=== PATIENT | female | born 1965 | race Caucasian/White ===

== ENCOUNTER 2017-07-06 08:36 | Emergency (ER) | payer SELFPAY, OTHER | END 2017-07-06 11:25 | disposition left against medical advice (07) | LOC: FTE 08:36 | DX: Z53.21 Procedure and treatment not carried out due to patient leaving prior to being seen by health care provider (principal) | CPT/HCPCS: 93005 ==

== ENCOUNTER 2017-07-24 06:04 | Emergency (ER) | payer OTHER ==
[2017-07-24 07:51] LABS: ADD MAN DIFF? NO
[2017-07-24 07:54] LABS: WHITE BLOOD COUNT 5.8 10^3/ul (4.8-10.8)
[2017-07-24 07:54] LABS: BASOPHIL # 0.1 10^3/ul (0.0-0.1); BASOPHILS % 1.2 % (0.0-2.0); EOSINOPHILS % 0.5 % (0.0-7.0); LYMPHOCYTES # 2.1 10^3/ul (0.8-2.9); LYMPHOCYTES % 36.7 % (15.0-51.0); MEAN CORPUSCULAR HEMOGLOBIN 30.9 pg (29.0-33.0); MEAN CORPUSCULAR HGB CONC 33.3 g/dl (32.0-37.0); MEAN CORPUSCULAR VOLUME 92.7 fl (82.0-101.0); MEAN PLATELET VOLUME 9.3 fl (7.4-10.4); MONOCYTE # 0.4 10^3/ul (0.3-0.9); MONOCYTES % 6.2 % (0.0-11.0); NEUTROPHIL # 3.2 10^3/ul (1.6-7.5); NEUTROPHILS % 55.1 % (39.0-77.0); PLATELET COUNT 237 10^3/UL (140-415); RED BLOOD COUNT 4.53 10^6/ul (4.20-5.40); RED CELL DISTRIBUTION WIDTH 12.2 % (11.5-14.5)
[2017-07-24 08:12] LABS: ANION GAP 14 (8-16); BLOOD UREA NITROGEN 12 mg/dl (7-20); CALCIUM 9.4 mg/dl (8.4-10.2); CARBON DIOXIDE 33 mmol/L (21-31); CHLORIDE 105 mmol/L (97-110); CREATININE 0.73 mg/dl (0.44-1.00); GLUCOSE 123 mg/dl (70-220); POTASSIUM 3.9 mmol/L (3.5-5.1); SODIUM 148 mmol/L (135-144)
[2017-07-24 08:17] LABS: INR 0.98; PROTIME 13.1 Sec (11.9-14.9)
[2017-07-24 08:20] LABS: D-DIMER 568.33 ng/ml (<460)
[2017-07-24 08:26] LABS: TROPONIN-I < 0.012 ng/ml (0.00-0.12)
[2017-07-24] MEDS: SOD CHLORIDE 0.9% 100 ML (10:25)
[2017-07-24] MEDS: IOHEXOL 100 ML (10:25)
[2017-07-24] MEDS: IOHEXOL 350MG/ML 50 ML BTL (10:26)
== END 2017-07-24 10:57 | disposition home or self-care (01) ==
LOC: E/R 06:04
DX: R07.89 Other chest pain (principal); E11.9 Type 2 diabetes mellitus without complications; I10 Essential (primary) hypertension; Z79.84 Long term (current) use of oral hypoglycemic drugs
CPT/HCPCS: 36415; 71045; 71275; 80048; 84484; 85025; 85378; 85610; 85730; 99285-25

== ENCOUNTER 2017-10-05 13:12 | Emergency (ER) | payer OTHER | END 2017-10-05 15:17 | disposition home or self-care (01) | LOC: FTE 13:12 | DX: S20.02XA Contusion of left breast, initial encounter (principal); I10 Essential (primary) hypertension; E11.9 Type 2 diabetes mellitus without complications; W21.02XA Struck by soccer ball, initial encounter; Y92.9 Unspecified place or not applicable; Z79.84 Long term (current) use of oral hypoglycemic drugs | CPT/HCPCS: 99283; Z7502 ==

== ENCOUNTER 2017-10-06 04:57 | Emergency (ER) | payer OTHER | END 2017-10-06 07:44 | disposition home or self-care (01) | LOC: FTE 04:57 | DX: S90.122A Contusion of left lesser toe(s) without damage to nail, initial encounter (principal); I10 Essential (primary) hypertension; E11.9 Type 2 diabetes mellitus without complications; W22.8XXA Striking against or struck by other objects, initial encounter; Y92.9 Unspecified place or not applicable; Z79.84 Long term (current) use of oral hypoglycemic drugs | CPT/HCPCS: 73660; 99283-25 ==

== ENCOUNTER 2017-12-05 17:45 | Emergency (ER) | payer OTHER | END 2017-12-05 18:53 | disposition home or self-care (01) | LOC: FTE 17:45 | DX: K08.89 Other specified disorders of teeth and supporting structures (principal); I10 Essential (primary) hypertension; E11.9 Type 2 diabetes mellitus without complications; Z79.84 Long term (current) use of oral hypoglycemic drugs | CPT/HCPCS: 99284; Z7502 ==

== ENCOUNTER 2018-06-08 08:32 | Emergency (ER) | payer OTHER ==
[2018-06-08] MEDS: DIPHTH/TET/ACEL PERTUSS (ADULT) 0.5 ML VIAL IM* (09:45)
[2018-06-08] MEDS: BACITRACIN 0.9 GM OINT TOP (11:15)
== END 2018-06-08 11:30 | disposition home or self-care (01) ==
LOC: FTE 08:32
DX: S91.311A Laceration without foreign body, right foot, initial encounter (principal); I10 Essential (primary) hypertension; E11.9 Type 2 diabetes mellitus without complications; W25.XXXA Contact with sharp glass, initial encounter; Y92.9 Unspecified place or not applicable; Z23 Encounter for immunization; Z79.84 Long term (current) use of oral hypoglycemic drugs
CPT/HCPCS: 73630; 90471; 90715; 99283-25